=== PATIENT | female | born 1995 | race Caucasian/White ===

== ENCOUNTER 2020-03-16 00:27 | Outpatient (CLI) | payer BC, MEDICAID, SELFPAY ==
[2020-03-16 18:04] LABS: SARS-CoV-2 RNA PCR Negative
== END 2020-03-16 00:28 | disposition home or self-care (01) ==
LOC: ANHCOVIDDT 00:27
PROVIDERS: PCP Family Medicine; Visit Provider Internal Medicine Gastroenterology
DX: Z01.812 Encounter for preprocedural laboratory examination (principal); Z20.828 Contact with and (suspected) exposure to other viral communicable diseases
CPT/HCPCS: 87635; C9803; U0003

== ENCOUNTER 2020-03-19 02:31 | Day surgery (SDC) | payer BC, MEDICAID, SELFPAY ==
[2020-03-12 15:59] VITALS: BMI 23.0
--- NOTE | 2020-03-19 06:53 | WPDANESEPPF ---
Anes - Initial Pre Proc Eval Procedure: Operation Date: 03/19/20 08:00 Proposed Procedures p Colonoscopy - Henrique Salazar MD Date/Time: 03/19/20 06:53 Surgeon: Henrique Salazar MD Pre Op Diagnosis: Abdominal Pain Patient Data Age: 24 Gender: F Height: 1.6 m Weight: 59 kg Allergies Allergy/AdvReac Type Severity Reaction Status Date / Time Latex, Natural Rubber Allergy Mild Itching Verified 03/19/20 07:04 Home Medications Medication Instructions Recorded Confirmed Type hydroxychloroquine 200 mg tablet 200 mg PO DAILY 01/30/20 03/12/20 History peg 3350-electrolytes 236 240 ml PO Q10M #4000 ml 02/26/20 Rx gram-22.74 gram-6.74 gram-5.86 gram solution amlodipine 5 mg PO DAILY 03/12/20 03/12/20 History polyethylene glycol 3350 17 gram 238 g PO DAILY #1 ea 03/18/20 Rx oral powder packet Patient hx anesthesia problems: none Family hx anesthesia problems: none PMFSH Past Medical History Medical History (Updated 03/19/20 @ 08:33 by Henrique Salazar MD) Alternating constipation and diarrhea Lower abdominal pain Raynauds disease Family History Family History Unknown Diabetes mellitus Heart disease Social History Social History Smoking status: Never smoker Alcohol intake: never Substance use: never Substance use type: does not use Living arrangements: alone Spiritual care concerns: No Anes - Eval Final PreProcedure Day of Procedure 03/19/20 06:53 Patient weight: normal Heart: regular rate and rhythm Lungs: clear to auscultation and normal air movement Airway: Mallampati scale class II Neurological: alert and oriented Last oral intake: >/= 8 hours ASA classification: II Emergent: no Anesthetic plan: proceed Anesthesia type and monitoring: general GIVS Informed Consent: The patient's anesthetic plan and its attendant risks and benefits were discussed with the patient/family/POA. Questions were solicited and answers provided to the satisfaction of the patient/family/POA.
[2020-03-19 07:10] VITALS: BP 116/73; PULSE 66; RESP 16; TEMP 36.7; O2SAT 100; BMI 23.1
[2020-03-19] MEDS: LACTATED RINGERS 1,000 ML 150 ML IV CONT (07:18)
--- NOTE | 2020-03-19 08:33 | PM.HPGS ---
History of Present Illness History of Present Illness Consent: Risks, benefits, and alternatives have been discussed and questions answered. Patient agrees to proceed with procedure. Chief complaint: Abdominal Pain Narrative: Ye Molina is a 24 year old female with recent diagnosed of SLE, now with lower abdominal pain and alternating diarrhea with constipation. Review of Systems Constitutional: Constitutional: Denies headache(s) and Denies weakness Eyes: Eyes: Denies blurry vision ENT: Reports Normal hearing present, Denies headache(s) and Denies neck pain Cardiovascular: Cardiovascular: Denies chest pain and Denies dyspnea Respiratory: Respiratory: Denies dyspnea Gastrointestinal: Gastrointestinal: Reports no additional gastrointestinal complaints Genitourinary: Genitourinary: Denies dysuria Musculoskeletal: Musculoskeletal: Denies neck pain Integumentary/Breasts: Skin/Breast: Denies dry skin Neurologic: Reports Normal hearing present, Denies headache(s) and Denies weakness Psychiatric: Psychiatric: Denies anxiety Endocrine: Endocrine: Denies change in body appearance Hematologic/Lymphatic: Hematologic/Lymphatic: Denies easy bleeding Allergic/Immunologic: Allergic/Immunologic: Denies urticaria [facility] Past Medical History Medical History (Updated 03/19/20 @ 08:33 by Henrique Salazar MD) Alternating constipation and diarrhea Lower abdominal pain Raynauds disease Family History Family History Unknown Diabetes mellitus Heart disease Social History Social History Smoking status: Never smoker Alcohol intake: never Substance use: never Substance use type: does not use Living arrangements: alone Spiritual care concerns: No Meds Home Medications and Allergies Home Medications Medication Instructions Recorded Confirmed Type hydroxychloroquine 200 mg tablet 200 mg PO DAILY 01/30/20 03/12/20 History peg 3350-electrolytes 236 240 ml PO Q10M #4000 ml 02/26/20 Rx gram-22.74 gram-6.74 gram-5.86 gram solution amlodipine 5 mg PO DAILY 03/12/20 03/12/20 History polyethylene glycol 3350 17 gram 238 g PO DAILY #1 ea 03/18/20 Rx oral powder packet Allergies Allergy/AdvReac Type Severity Reaction Status Date / Time Latex, Natural Rubber Allergy Mild Itching Verified 03/19/20 07:04 Vital Signs Vital Signs - 24 hr 03/19/20 07:10 Temperature 98.0 F Pulse Rate 66 Respiratory Rate 16 Blood Pressure 116/73 Pulse Oximetry 100 Exam Const: General: comfortable and no acute distress HENMT: General nose exam: Normal nares present Eyes: General: appearance normal, both eyes and all related structures Neck: Neck: no JVD Resp: Auscultation: clear to auscultation bilaterally Cardio: Rate: regular rate Rhythm: regular rhythm GI: Inspection: non-distended GI Palp: Yes Soft to palpation Skin: General skin exam: normal color Neuro: General: gait normal Speech: normal speech Extrem: General: normal to inspection Psych: Mental Status: mental status grossly normal Assessment and Plan Assessment and plan (1) Lower abdominal pain: Code(s): R10.30 - Lower abdominal pain, unspecified Status: Acute Assessment and Plan: will proceed with colonoscopy (2) Alternating constipation and diarrhea: Code(s): R19.8 - Other specified symptoms and signs involving the digestive system and abdomen Status: Acute (3) Lupus: Code(s): M32.9 - Systemic lupus erythematosus, unspecified Status: Acute
[2020-03-19 08:35] VITALS: BP 89/53; PULSE 83; RESP 27; O2SAT 100
[2020-03-19 08:45] VITALS: BP 90/48; PULSE 66; RESP 19; O2SAT 100
[2020-03-19 08:55] VITALS: BP 97/56; PULSE 68; RESP 19; O2SAT 100
== END 2020-03-19 09:06 | disposition home or self-care (01) ==
PROVIDERS: PCP Family Medicine; Visit Provider Internal Medicine Gastroenterology
PROC: 0DJD8ZZ Inspection of Lower Intestinal Tract, Via Natural or Artificial Opening Endoscopic (ICD-10-PCS; CPT 45378; principal; 2020-03-19 08:00)
DX: R10.30 Lower abdominal pain, unspecified (principal); K59.00 Constipation, unspecified; R19.7 Diarrhea, unspecified; M32.9 Systemic lupus erythematosus, unspecified; I73.00 Raynaud's syndrome without gangrene
CPT/HCPCS: 45380; 88305; J2704; J7120

== ENCOUNTER 2021-11-20 14:06 | Outpatient (CLI) | payer BC, MEDICAID, SELFPAY ==
[2021-11-20 14:56] LABS: Influenza A QL RT-PCR Negative (Negative); Influenza B QL RT-PCR Negative (Negative); SARS-CoV-2 RNA PCR Negative (Negative)
== END 2021-11-20 14:07 | disposition home or self-care (01) ==
LOC: CHSLAB 14:08
PROVIDERS: PCP Family Medicine; Visit Provider Family Medicine
DX: Z20.822 Contact with and (suspected) exposure to COVID-19 (principal)
CPT/HCPCS: 87502; C9803; U0003; U0005

== ENCOUNTER 2022-02-21 20:17 | Emergency (ER) | payer BC, MEDICAID, SELFPAY ==
[2022-02-21 20:38] VITALS: BP 119/83; PULSE 79; RESP 17; TEMP 36.9; O2SAT 100
--- NOTE | 2022-02-21 20:47 | ED.ABDPAIN ---
HPI - Abdominal Pain General Chief Complaint: Abdominal Pain Stated Complaint: R side pain Source: patient Mode of arrival: ambulatory History of Present Illness HPI narrative: 26-year-old female with a history of lupus, Raynaud's phenomenon and diarrhea alternating with constipation presents to the ER with a 1 day history of -- right upper quadrant abdominal pain which is continuous. No fever. No nausea / vomiting. No radiation of the pain. MD elicited complaint: abdominal pain Onset (ago): day(s) ( Started yesterday) Pain Consistency: intermittent Location: RUQ Severity: mild Quality: aching Radiation: none Migration to: no migration Exacerbating factors: nothing Relieving factors: nothing Associated symptoms: denies other symptoms Related Data Patient : No Home Medications Medication Instructions Recorded Confirmed folic acid 1 mg tablet 5 mg PO DAILY 12/31/21 02/21/22 methotrexate sodium 15 mg tablet 15 mg PO WEEKLY 12/31/21 02/21/22 amlodipine 5 mg tablet 5 mg PO DAILY 02/21/22 02/21/22 Allergies Allergy/AdvReac Type Severity Reaction Status Date / Time nifedipine Allergy Intermediate Flushing Verified 02/21/22 20:34 Latex, Natural Rubber Allergy Mild Itching Verified 02/21/22 20:34 Review of Systems Review of Systems: All systems reviewed & are unremarkable except as noted in HPI and below Constitutional: Constitutional: Reports as per HPI and Reports no additional constitutional complaints Eyes: Eyes: Reports as per HPI and Reports no additional eye complaints ENT: Reports system reviewed and no additional complaints, except as documented and Reports as per HPI Cardiovascular: Cardiovascular: Reports as per HPI and Reports no additional cardiovascular complaints Respiratory: Respiratory: Reports as per HPI and Reports no additional respiratory complaints Gastrointestinal: Gastrointestinal: Reports as per HPI, Reports no additional gastrointestinal complaints and Reports abdominal pain Genitourinary: Genitourinary: Reports no additional female genitourinary complaints and Reports as per HPI Musculoskeletal: Musculoskeletal: Reports no additional musculoskeletal complaints and Reports as per HPI Integumentary/Breasts: Skin/Breast: Reports system reviewed and no additional complaints, except as docu and Reports as per HPI Neurologic: Reports system reviewed and no additional complaints, except as documented and Reports as per HPI Psychiatric: Psychiatric: Reports no additional psychiatric complaints and Reports as per HPI Endocrine: Endocrine: Reports no additional endocrine complaints and Reports as per HPI Hematologic/Lymphatic: Hematologic/Lymphatic: Reports no additional hematologic/lymphatic complaints and Reports as per HPI Allergic/Immunologic: Allergic/Immunologic: Reports no additional allergic/immunologic complaints and Reports as per HPI PMFSH Past Medical History Medical History Alternating constipation and diarrhea History of 1 History of vaginal delivery Lower abdominal pain Lupus Raynauds disease Surgical History Surgical History History of removal of cyst Right hand Family History Family History Grandparent Diabetes mellitus Heart disease Social History Social History Smoking status: Never smoker Alcohol intake: never Substance use: never Substance use type: does not use Spiritual care concerns: No Exam Const: General: no acute distress Orientation/consciousness: patient oriented x3 Limitations: no limitations HENMT: Ears: external ears normal Face/Nose/Sinus: Normal external nose present Mouth: Yes Normal oral and palatal mucosa present Throat: posterior oropharynx normal Eyes: Conjunctivae: conjunctivae n
[2022-02-21 21:30] LABS: Appearance Urine Clear (Clear); Bilirubin Urine Negative (Negative); Blood Urine Negative (Negative); Glucose Urine UA Negative (Negative); Ketones Urine Negative (Negative); Leukocyte Esterase Ur Negative (Negative); Nitrate Urine Negative (Negative); Protein Urine Negative (Negative); Urobilinogen Urine 0.2 mg/dL (0.2-1.0)
[2022-02-21 21:31] LABS: Basophils Absolute Auto 0.02 K/mm3 (0.00-0.10); Basophils Percent Auto 0.6 % (0.0-1.0); Eosinophils Absolute Auto 0.14 K/mm3 (0.02-0.50); Eosinophils Percent Auto 4.5 % (1.0-6.0); Hematocrit 36.7 % (35.0-49.0); Immature Granulocyte Absolute 0.01 K/mm3 (0.00-0.00); Immature Granulocyte Percent A 0.3 % (0.0-0.0); Immature Platelet Fraction Pct 2.7 % (1.0-7.0); Lymphocytes Absolute Auto 0.81 K/mm3 (1.10-4.50); Lymphocytes Percent Auto 26.3 % (18.0-42.0); Mean Corpuscular HGB Conc 32.7 g/dL (32.0-36.0); Mean Corpuscular Hemoglobin 28.6 pg (27.0-31.0); Mean Corpuscular Volume 87.4 fL (78.0-102.0); Mean Platelet Volume 10.7 fl (9.2-11.8); Monocytes Absolute Auto 0.44 K/mm3 (0.10-0.90); Monocytes Percent Auto 14.3 % (2.0-11.0); Neutrophils Absolute Auto 1.7 K/mm3 (1.7-7.2); Platelet Count Result 114 K/mm3 (150-420); Red Cell Distribution Width 13.6 % (11.6-14.4); White Blood Count 3.1 K/mm3 (4.8-10.8)
[2022-02-21 21:42] LABS: Add Urine Microscopic? NO; Color Urine Light Yellow (Yellow); Pregnancy On Board Control Positive; Urine Pregnancy Test Negative
[2022-02-21 21:46] LABS: Prothrombin Time 11.4 Seconds (9.50-12.10)
[2022-02-21 21:51] LABS: Lactic Acid Reflex 0.5 mmol/L (0.4-2.0)
[2022-02-21 21:58] LABS: Alanine Aminotransferase 20 U/L (14-59); Alkaline Phosphatase 75 U/L (46-116); Anion Gap 8 mmol/L (8-16); Aspartate Amino Transferase 24 U/L (15-37); Bilirubin,Total 0.3 mg/dL (0.00-1.00); Blood Urea Nitrogen 9 mg/dL (7-18); Calcium 8.6 mg/dL (8.5-10.1); Carbon Dioxide 26 mmol/L (21-32); Chloride 105 mmol/L (98-108); Estimated CRCL calculation 73 ml/min; Estimated Glomerular Filt Rate > 60; Glucose 81 mg/dL (70-99); Lipase 152 U/L (73-393); Osmolality Calculated 285 mOsm/kg (285-295); Potassium 3.6 mmol/L (3.5-5.1); Sodium 139 mmol/L (136-145); Total Protein 8.5 g/dL (6.4-8.2)
[2022-02-21 22:36] VITALS: BP 114/76; PULSE 75; RESP 18; TEMP 36.4; O2SAT 98
== END 2022-02-21 22:39 | disposition home or self-care (01) ==
PROVIDERS: Emergency Provider Internal Medicine Critical Care Medicine; PCP Family Medicine
DX: R10.9 Unspecified abdominal pain (principal)
CPT/HCPCS: 36415; 80053; 81003; 81025; 83605; 83690; 85025; 85055; 85610; 99283

== ENCOUNTER 2022-05-10 17:15 | Emergency (ER) | payer MEDICAID, SELFPAY ==
[2022-05-10 17:19] VITALS: BP 112/76; PULSE 87; RESP 16; TEMP 36.6; O2SAT 99
--- NOTE | 2022-05-10 17:45 | ED.GENADULT ---
HPI - General Adult General Chief complaint: Vaginal Bleeding Stated complaint: period for 2+weeks, heavy bleeding Time Seen by Provider: 05/10/22 17:44 History of Present Illness HPI narrative: 26-year-old female patient with known history of Raynaud's and lupus erythematosus is here with complaints of vaginal bleeding for almost 3 weeks. Patient states that she had her Implanon removed in February and in on April 20 she has had her regular period which lasted approximately a week. After 3 days of that she started having bleeding again and has continued to bleed and passed clots since then. She does complain about mild pelvic cramping. She denies any lightheadedness or passing out episodes. She denies any blood in the stools or urine. Patient is 1 para 1 and is not currently sexually active. She is not on any other control at this time. Patient is under care of a underwriting clerk at [employer] and also sees a supervisor hand workers locally for history of pancytopenia. She denies ever having had the need to get a blood transfusion. Related Data Home Medications Medication Instructions Recorded Confirmed folic acid 1 mg tablet 5 mg PO DAILY 12/31/21 05/10/22 methotrexate sodium 15 mg tablet 15 mg PO WEEKLY 12/31/21 05/10/22 amlodipine 5 mg tablet 5 mg PO DAILY 02/21/22 05/10/22 Allergies Allergy/AdvReac Type Severity Reaction Status Date / Time nifedipine Allergy Intermediate Flushing Verified 03/04/22 13:53 Latex, Natural Rubber Allergy Mild Itching Verified 03/04/22 13:53 Review of Systems Review of Systems: All systems reviewed & are unremarkable except as noted in HPI and below Constitutional: Constitutional: Denies fatigue, Denies fever(s) and Denies weakness Eyes: Eyes: Reports as per HPI ENT: Reports system reviewed and no additional complaints, except as documented Cardiovascular: Cardiovascular: Reports as per HPI and Reports no additional cardiovascular complaints Respiratory: Respiratory: Reports as per HPI and Reports no additional respiratory complaints Gastrointestinal: Gastrointestinal: Reports no additional gastrointestinal complaints Genitourinary: Genitourinary: Reports no additional female genitourinary complaints, Reports abnormal vaginal bleeding, Denies hematuria, Denies nocturia, Denies genital lesions, Denies dysuria, Reports pelvic pain, Denies flank pain, Denies urinary incontinence and Denies vaginal discharge Musculoskeletal: Musculoskeletal: Reports no additional musculoskeletal complaints Integumentary/Breasts: Skin/Breast: Reports system reviewed and no additional complaints, except as docu Neurologic: Reports system reviewed and no additional complaints, except as documented Endocrine: Endocrine: Reports no additional endocrine complaints Hematologic/Lymphatic: Hematologic/Lymphatic: Reports no additional hematologic/lymphatic complaints PMFSH Past Medical History Medical History Alternating constipation and diarrhea History of 1 History of vaginal delivery Lower abdominal pain Lupus Pancytopenia Raynauds disease Surgical History Surgical History History of removal of cyst Right hand Family History Family History Grandparent Diabetes mellitus Heart disease Social History Social History Smoking status: Never smoker Alcohol intake: never Substance use: never Substance use type: does not use Spiritual care concerns: No Exam Narrative: Alert female patient who appears in no acute distress. Vital signs are stable. Patient has a pulse rate of 87 blood pressure is 112/76 HEENT is acutely normal. no scleral pallor is noted. Oral mucous membranes are pink and moist. Neck is supple Chest wall is nontender. Lungs are clear to ausculta
[2022-05-10 18:29] LABS: Hematocrit 32.3 % (35.0-49.0); Hemoglobin 10.4 g/dL (12.0-15.0); Mean Corpuscular HGB Conc 32.2 g/dL (32.0-36.0); Mean Corpuscular Hemoglobin 28.4 pg (27.0-31.0); Mean Corpuscular Volume 88.3 fL (78.0-102.0); Mean Platelet Volume 10.8 fl (9.2-11.8); Platelet Count Result 136 K/mm3 (150-420); Red Blood Count 3.66 M/mm3 (4.20-5.40); Red Cell Distribution Width 14.2 % (11.6-14.4); White Blood Count 2.8 K/mm3 (4.8-10.8)
[2022-05-10 18:44] LABS: Alanine Aminotransferase 19 U/L (14-59); Albumin Level 3.5 g/dL (3.4-5.0); Alkaline Phosphatase 68 U/L (46-116); Anion Gap 5 mmol/L (8-16); Aspartate Amino Transferase 17 U/L (15-37); Bilirubin,Total 0.3 mg/dL (0.00-1.00); Blood Urea Nitrogen 8 mg/dL (7-18); Calcium 8.4 mg/dL (8.5-10.1); Carbon Dioxide 31 mmol/L (21-32); Chloride 104 mmol/L (98-108); Estimated CRCL calculation 74 ml/min; Estimated Glomerular Filt Rate > 60; Glucose 81 mg/dL (70-99); Osmolality Calculated 287 mOsm/kg (285-295); Potassium 3.8 mmol/L (3.5-5.1); Sodium 140 mmol/L (136-145); Total Protein 7.9 g/dL (6.4-8.2)
--- NOTE | 2022-05-10 19:05 | PC.NURSE ---
Care resumed, pt restin on bed, no c/o at this time, awaiting lab results and will d/c home if results normal. POC discussed c pt per ERP Dr Wong.
[2022-05-10 19:09] LABS: Band Neutrophils Percent 0 % (0-6); Neutrophils Absolute Manual 1.23 K/mm3 (1.7-7.2); Neutrophils Percent Manual 44 % (46-73); Total Cells Counted 100
[2022-05-10 19:10] LABS: Basophils Absolute Manual 0.02 K/mm3 (0-0.1); Basophils Percent Manual 1 % (0-1); Eosinophils Absolute Manual 0.16 K/mm3 (0.02-0.5); Eosinophils Percent Manual 6 % (1-6); Lymphocytes Percent Manual 43 % (18-44); Monocytes Absolute Manual 0.16 K/mm3 (0.1-0.90); Monocytes Percent Manual 6 % (3-9); Platelet Estimate Adequate (Adequate); Schistocytes None Seen (NORMAL)
[2022-05-10 19:18] VITALS: BP 102/65; PULSE 77; RESP 18; TEMP 36.6; O2SAT 98
--- NOTE | 2022-05-10 19:22 | ED.GENADULT ---
HPI - General Adult General Chief complaint: Vaginal Bleeding Stated complaint: period for 2+weeks, heavy bleeding Time Seen by Provider: 05/10/22 17:44 History of Present Illness HPI narrative: Care resumed from Dr. Lee at 1900. Please see her note for HPI and PE. Related Data Home Medications Medication Instructions Recorded Confirmed folic acid 1 mg tablet 5 mg PO DAILY 12/31/21 05/10/22 methotrexate sodium 15 mg tablet 15 mg PO WEEKLY 12/31/21 05/10/22 amlodipine 5 mg tablet 5 mg PO DAILY 02/21/22 05/10/22 Allergies Allergy/AdvReac Type Severity Reaction Status Date / Time nifedipine Allergy Intermediate Flushing Verified 03/04/22 13:53 Latex, Natural Rubber Allergy Mild Itching Verified 03/04/22 13:53 Review of Systems Review of Systems: All systems reviewed & are unremarkable except as noted in HPI and below PMFSH Past Medical History Medical History Alternating constipation and diarrhea History of 1 History of vaginal delivery Lower abdominal pain Lupus Pancytopenia Raynauds disease Surgical History Surgical History History of removal of cyst Right hand Family History Family History Grandparent Diabetes mellitus Heart disease Social History Social History Smoking status: Never smoker Alcohol intake: never Substance use: never Substance use type: does not use Spiritual care concerns: No Exam Const: General: healthy appearing and no acute distress Nutritional Appearance: well nourished HENMT: Head: normal to inspection Eyes: Conjunctivae: conjunctivae normal Resp: Effort & Inspection: normal respiratory effort Cardio: Rate: regular rate Skin: General skin exam: normal color Neuro: General: patient oriented x3 and moves all extremities Extrem: General: normal to inspection Psych: Mental Status: mental status grossly normal Course Course Emergency Course: CBC showed pancytopenia, not much different from previous. She denied CP, dyspnea and lightheadedness. She was discharged to f/u with her specialists and given return precautions. Vital Signs Vital signs: Vital Signs Temperature 97.9 F 05/10/22 17:19 Pulse Rate 87 05/10/22 17:19 Respiratory Rate 16 05/10/22 17:19 Blood Pressure 112/76 05/10/22 17:19 Pulse Oximetry 99 05/10/22 17:19 Oxygen Delivery Room Air 05/10/22 17:19 Temperature 97.9 F 05/10/22 19:18 Pulse Rate 77 05/10/22 19:18 Respiratory Rate 18 05/10/22 19:18 Blood Pressure 102/65 05/10/22 19:18 Pulse Oximetry 98 05/10/22 19:18 Oxygen Delivery Room Air 05/10/22 19:18 Medical Decision Making Vital Signs Vital Signs: Vital Signs Temperature 97.9 F 05/10/22 17:19 Pulse Rate 87 05/10/22 17:19 Respiratory Rate 16 05/10/22 17:19 Blood Pressure 112/76 05/10/22 17:19 Pulse Oximetry 99 05/10/22 17:19 Oxygen Delivery Room Air 05/10/22 17:19 Temperature 97.9 F 05/10/22 19:18 Pulse Rate 77 05/10/22 19:18 Respiratory Rate 18 05/10/22 19:18 Blood Pressure 102/65 05/10/22 19:18 Pulse Oximetry 98 05/10/22 19:18 Oxygen Delivery Room Air 05/10/22 19:18 Lab Data 05/10/22 18:21 05/10/22 18:21 Labs: Lab Results 05/10/22 05/10/22 Range/Units 18:21 18:21 WBC 2.8 L (4.8-10.8) K/mm3 RBC 3.66 L (4.20-5.40) M/mm3 Hgb 10.4 L (12.0-15.0) g/dL Hct 32.3 L (35.0-49.0) % MCV 88.3 (78.0-102.0) fL MCH 28.4 (27.0-31.0) pg MCHC 32.2 (32.0-36.0) g/dL RDW 14.2 (11.6-14.4) % Plt Count 136 L (150-420) K/mm3 MPV 10.8 (9.2-11.8) fl Immature Gran % (Auto) Not Reportable Neut % (Auto) Not Reportable Lymph % (Auto) Not Reportable [place] % (Auto) Not Reportable Eos % (Auto) Not Re
== END 2022-05-10 19:18 | disposition home or self-care (01) ==
PROVIDERS: Emergency Medicine; Emergency Provider Family Medicine; PCP Family Medicine
DX: N92.0 Excessive and frequent menstruation with regular cycle (principal); D61.818 Other pancytopenia; M32.9 Systemic lupus erythematosus, unspecified; I73.00 Raynaud's syndrome without gangrene
CPT/HCPCS: 36415; 80053; 85025; 99283

== ENCOUNTER 2022-07-07 16:52 | Outpatient (CLI) | payer BC, SELFPAY | END 2022-07-07 16:53 | disposition home or self-care (01) | LOC: ANHLAB 16:55 | PROVIDERS: PCP Family Medicine; Visit Provider Family Medicine | DX: R30.0 Dysuria (principal) | CPT/HCPCS: 87086; 87491; 87591; 87661 ==

== ENCOUNTER 2022-11-07 22:45 | Emergency (ER) | payer BC, SELFPAY ==
[2022-11-07 22:56] VITALS: BP 127/76; PULSE 85; RESP 20; TEMP 36.6; O2SAT 100
--- NOTE | 2022-11-07 23:02 | ED.FALL ---
HPI - Fall General Chief Complaint: Fall Stated Complaint: fell down stairs Source: patient Mode of arrival: ambulatory Limitations: no limitations History of Present Illness HPI Narrative: this is a 27-year-old female that is 10 weeks that had a fall on 1 1 one-step and fell onto her abdomen and currently having some discomfort she fell about 2hours ago with no bruising on her abdomen no flank pain no vaginal discharge or spotting no bleeding vaginally. Patient also has a bruise on the anterior surface of her right foot but does have good range of motion in her knee and her foot has a strong pedal pulse is. No other injuries no chest pain no shortness of breath. No head injury or loss of consciousness no blurry vision. complaint: fall Onset (ago): hour(s) Fall from: standing and down stairs (#) ( 1) Severity: mild Severity scale (1-10): 1 Related Data Home Medications Medication Instructions Recorded Confirmed vits no.130-ferrous fum 1 tablet PO DAILY 11/07/22 11/07/22 27 mg iron-folic acid 800 mcg tablet ( Vitamin) Allergies Allergy/AdvReac Type Severity Reaction Status Date / Time nifedipine Allergy Intermediate Flushing Verified 03/04/22 13:53 Latex, Natural Rubber Allergy Mild Itching Verified 03/04/22 13:53 Review of Systems Review of Systems: All systems reviewed & are unremarkable except as noted in HPI and below PMFSH Past Medical History Medical History Alternating constipation and diarrhea History of 1 History of vaginal delivery Lower abdominal pain Lupus Pancytopenia Raynauds disease Surgical History Surgical History History of removal of cyst Right hand Family History Family History Grandparent Diabetes mellitus Heart disease Social History Social History Smoking status: Never smoker Alcohol intake: never Substance use: never Substance use type: does not use Living arrangements: with family Spiritual care concerns: No Exam Const: General: healthy appearing, no acute distress and alert Nutritional Appearance: well nourished Limitations: no limitations HENMT: Head: normal to inspection Face and sinus: normal facial exam Mouth: Yes Normal oral and palatal mucosa present Eyes: Conjunctivae: conjunctivae normal Pupils: Equal, round and reactive pupils present Neck: Neck: normal visual inspection Chest: Chest palpation & inspection: normal inspection of the chest Resp: Effort & Inspection: normal respiratory effort Auscultation: clear to auscultation bilaterally Cardio: Rate: regular rate Rhythm: regular rhythm GI: Auscultation: normal bowel sounds Other: No bruises or injuries noted during palpation was soft and nontender : General: Yes bladder normal to palpation Skin: General skin exam: normal color Wounds: wounds noted Neuro: General: patient oriented x3 Cranial nerves: Yes Nystagmus not present Speech: normal speech Extrem: General: normal to inspection Psych: Mental Status: mental status grossly normal Affect: normal affect Course Course Emergency Course: during examination reassurance was given and advised patient to follow-up with rn cvicu or return to the emergency department if any changes, or if any vaginal bleeding. Critical Care Time Critical Care Time Critical Care Time: No Discharge Plan Discharge Clinical Impression: Lower abdominal pain Patient Disposition: Home, Self-Care Condition: Stable Instructions: Antibiotic Form, Foot Contusion (ED) Additional Instructions: follow-up with rn cvicu if symptoms persist or worsen or if any vaginal bleeding return to the nearest emergency department. Prescriptions: No Action Pren
--- NOTE | 2022-11-07 23:11 | PC.NURSE ---
Pt signed decline for HIV testing while in ER. She states she had done in her OB Dr office recently.
[2022-11-07 23:15] VITALS: BP 118/74; PULSE 74; RESP 18; O2SAT 99
== END 2022-11-07 23:18 | disposition home or self-care (01) ==
PROVIDERS: Emergency Provider Emergency Medicine; PCP Family Medicine
DX: O26.891 Other specified pregnancy related conditions, first trimester (principal); R10.30 Lower abdominal pain, unspecified; Z3A.10 10 weeks gestation of pregnancy; W10.9XXA Fall (on) (from) unspecified stairs and steps, initial encounter
CPT/HCPCS: 99281

== ENCOUNTER 2022-11-09 18:57 | Emergency (ER) | payer BC, SELFPAY ==
[2022-11-09 19:27] VITALS: BP 97/75; PULSE 81; RESP 16; TEMP 36.7; O2SAT 100
--- NOTE | 2022-11-09 23:40 | ED.GENADULT ---
HPI - General Adult General Chief complaint: Abdominal Pain Stated complaint: fall 2 days ago/abd pain/early Time Seen by Provider: 11/09/22 21:59 History of Present Illness HPI narrative: 27-year-old female presenting 11 weeks gestation. patient fell down several stairs 2 days ago. She then went to [facility] in ED to be evaluated but was told they did not have the proper ultrasounds to evaluate the fetus. This time the patient has had some abdominal pain her belly button. She has had no vaginal discharge or bleeding. No other complaints. she wants to make sure her baby is okay. Related Data Home Medications Medication Instructions Recorded Confirmed vits no.130-ferrous fum 1 tablet PO DAILY 11/07/22 11/07/22 27 mg iron-folic acid 800 mcg tablet ( Vitamin) Allergies Allergy/AdvReac Type Severity Reaction Status Date / Time nifedipine Allergy Intermediate Flushing Verified 03/04/22 13:53 Latex, Natural Rubber Allergy Mild Itching Verified 03/04/22 13:53 PMFSH Past Medical History Medical History Alternating constipation and diarrhea History of 1 History of vaginal delivery Lower abdominal pain Lupus Pancytopenia Raynauds disease Surgical History Surgical History History of removal of cyst Right hand Family History Family History Grandparent Diabetes mellitus Heart disease Social History Social History Smoking status: Never smoker Alcohol intake: never Substance use: never Substance use type: does not use Living arrangements: with family Spiritual care concerns: No Exam Narrative: APPEARANCE: No apparent distress. Head: atraumatic. EYES: EOMI, NOSE: Atraumatic NECK: Trachea midline RESPIRATORY: No increased rate of breathing CARDIOVASCULAR: RRR, ABDOMINAL: Nondistended, soft no guarding or rebound MUSCULOSKELETAl: No obvious deformities NEURO: Alert. Moving 4/4 extremities SKIN:: Warm, dry. Normal color PSYCHIATRIC: Normal affect Course Vital Signs Vital signs: Vital Signs Temperature 98.0 F 11/09/22 19:27 Pulse Rate 81 11/09/22 19:27 Respiratory Rate 16 11/09/22 19:27 Blood Pressure 97/75 L 11/09/22 19:27 Pulse Oximetry 100 11/09/22 19:27 Oxygen Delivery Room Air 11/09/22 19:27 Temperature 98.0 F 11/09/22 19:27 Pulse Rate 81 11/09/22 19:27 Respiratory Rate 16 11/09/22 19:27 Blood Pressure 97/75 L 11/09/22 19:27 Pulse Oximetry 100 11/09/22 19:27 Oxygen Delivery Room Air 11/09/22 19:27 Medical Decision Making MDM Narrative Medical decision making narrative: -Presentation: 27-year-old woman at 27 weeks gestation presenting after a fall. -DDX includes but is not limited to: Abdominal trauma, intrauterine demise, -Co-morbidities complicating care: -Social determinants of health: lives alone with her child, works in payroll -External Chart Review: review of [facility] ED note -Hx from independent Sources: none -Independent interpretation of studies: point of care OB ultrasound revealed a live intrauterine fetus with a normal heart rate. No free fluid in the abdomen. -Discussion of Management/Consultants: None -Dx tests considered but not ordered: none -Procedures: none -Interventions: none -Shared decision making / Disposition: results were explained to the patient. patient was instructed to follow-up with her OBGYN as needed and return if she develops severe abdominal pain or vaginal bleeding -RX Vital Signs Vital Signs: Vital Signs Temperature 98.0 F 11/09/22 19:27 Pulse Rate 81 11/09/22 19:27 Respiratory Rate 16 11/09/22 19:27 Blood Pressure 97/75 L 11/09/22 19:27 Pulse Oxi
== END 2022-11-10 00:20 | disposition home or self-care (01) ==
PROVIDERS: Emergency Provider Emergency Medicine; PCP Family Medicine
DX: O9A.212 Injury, poisoning and certain other consequences of external causes complicating pregnancy, second trimester (principal); S39.91XA Unspecified injury of abdomen, initial encounter; O99.412 Diseases of the circulatory system complicating pregnancy, second trimester; I73.00 Raynaud's syndrome without gangrene; Z3A.27 27 weeks gestation of pregnancy; W10.9XXA Fall (on) (from) unspecified stairs and steps, initial encounter
CPT/HCPCS: 99282

== ENCOUNTER 2023-04-15 21:33 | Emergency (ER) | payer BC, SELFPAY ==
[2023-04-15 21:43] VITALS: BP 118/77; PULSE 82; RESP 18; TEMP 37; O2SAT 98
[2023-04-15 21:52] LABS: Hematocrit 33.5 % (35.0-49.0); Hemoglobin 10.5 g/dL (12.0-15.0); Mean Corpuscular HGB Conc 31.3 g/dL (32.0-36.0); Mean Corpuscular Hemoglobin 26.9 pg (27.0-31.0); Mean Corpuscular Volume 85.7 fL (78.0-102.0); Mean Platelet Volume 8.9 fl (9.2-11.8); Platelet Count Result 113 K/mm3 (150-420); Red Blood Count 3.91 M/mm3 (4.20-5.40); Red Cell Distribution Width 14.8 % (11.6-14.4); White Blood Count 2.8 K/mm3 (4.8-10.8)
[2023-04-15 22:02] LABS: Band Neutrophils Percent 0 % (0-6); Basophils Absolute Manual 0.02 K/mm3 (0-0.1); Basophils Percent Manual 1 % (0-1); Eosinophils Percent Manual 0 % (1-6); Lymphocytes Absolute Manual 0.81 K/mm3 (1.1-4.5); Lymphocytes Percent Manual 29 % (18-44); Monocytes Absolute Manual 0.39 K/mm3 (0.1-0.90); Monocytes Percent Manual 14 % (3-9); Neutrophils Absolute Manual 1.56 K/mm3 (1.7-7.2); Neutrophils Percent Manual 56 % (46-73); Platelet Estimate Adequate (Adequate)
[2023-04-15 22:07] LABS: Alanine Aminotransferase 55 U/L (14-59); Albumin Level 3.5 g/dL (3.4-5.0); Alkaline Phosphatase 81 U/L (46-116); Anion Gap 5 mmol/L (8-16); Aspartate Amino Transferase 46 U/L (15-37); Bilirubin,Total 0.2 mg/dL (0.00-1.00); Blood Urea Nitrogen 14 mg/dL (7-18); Calcium 8.4 mg/dL (8.5-10.1); Carbon Dioxide 29 mmol/L (21-32); Chloride 102 mmol/L (98-108); Estimated CRCL calculation 69 ml/min; Estimated Glomerular Filt Rate > 60; Glucose 101 mg/dL (70-99); Osmolality Calculated 282 mOsm/kg (285-295); Potassium 3.2 mmol/L (3.5-5.1); Sodium 136 mmol/L (136-145); Total Protein 8.3 g/dL (6.4-8.2)
[2023-04-15 22:08] LABS: CRP < 0.5 mg/dL (0.0-0.9)
--- NOTE | 2023-04-15 22:14 | ED.GENADULT ---
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 Onset (ago): day(s) Related Data Home Medications Medication Instructions Recorded Confirmed vits no.[id number]-ferrous fum 1 tablet PO DAILY 11/07/22 11/07/22 27 mg iron-folic acid 800 mcg tablet ( Vitamin) Allergies Allergy/AdvReac Type Severity Reaction Status Date / Time nifedipine Allergy Intermediate Flushing Verified 03/04/22 13:53 Latex, Natural Rubber Allergy Mild Itching Verified 03/04/22 13:53 Review of Systems Review of Systems: All systems reviewed & are unremarkable except as noted in HPI and below PMFSH Past Medical History Medical History Alternating constipation and diarrhea History of 1 History of vaginal delivery Lower abdominal pain Lupus Pancytopenia Raynauds disease Surgical History Surgical History History of removal of cyst Right hand Family History Family History Grandparent Diabetes mellitus Heart disease Social History Social History Smoking status: Never smoker Alcohol intake: never Substance use: never Substance use type: does not use Living arrangements: with family Spiritual care concerns: No Exam Const: General: cooperative, healthy appearing, comfortable and no acute distress Eyes: General: appearance normal, both eyes and all related structures Neck: Neck: normal visual inspection, full ROM and no lymphadenopathy Chest: Chest palpation & inspection: normal inspection of the chest and normal palpation of entire chest wall Resp: Effort & Inspection: normal respiratory effort and able to speak in complete sentences Cardio: Jugular venous distension: no JVD Palpation: normal PMI Rate: regular rate Rhythm: regular rhythm GI: Inspection: normal to inspection Auscultation: normal bowel sounds Neuro: General: oriented to person, oriented to place and oriented to time Extrem: General: normal to inspection, full ROM and capillary refill normal Course Course Emergency Course: Patient had blood work performed she is mildly anemic but not to explain any reason for her to be fatigued, potassium is 3.2 and will replace with a dose of p.o. potassium and will discharge and advised patient follow-up with her primary. Vital Signs Vital signs: Vital Signs Temperature 37.0 C 04/15/23 21:43 Pulse Rate 82 04/15/23 21:43 Respiratory Rate 18 04/15/23 21:43 Blood Pressure 118/77 04/15/23 21:43 Pulse Oximetry 98 04/15/23 21:43 Oxygen Delivery Room Air 04/15/23 21:43 Temperature 37.0 C 04/15/23 21:43 Pulse Rate 82 04/15/23 21:43 Respiratory Rate 18 04/15/23 21:43 Blood Pressure 118/77 04/15/23 21:43 Pulse Oximetry 98 04/15/23 21:43 Oxygen Delivery Room Air 04/15/23 21:43 Medical Decision Making Vital Signs Vital Signs: Vital Signs Temperature 37.0 C 04/15/23 21:43 Pulse Rate 82 04/15/23 21:43 Respiratory Rate 18 04/15/23 21:43 Blood Pressure 118/77 04/15/23 21:43 Pulse Oximetry 98 04/15/23 21:43 Oxygen Delivery Room Air 04/15/23 21:43 Temperature 37.0 C 04/15/23 21:43 Pulse Rate 82 04/15/23 21:43 Respiratory Rate 18 04/15/23 21:43 Blood Pressure 118/77
[2023-04-15] MEDS: POTASSIUM BICARBONATE 25 MEQ TABEF 50 MEQ PO (22:24)
[2023-04-15 22:27] VITALS: BP 122/71; PULSE 74; RESP 18; O2SAT 98
== END 2023-04-15 22:33 | disposition home or self-care (01) ==
PROVIDERS: Emergency Provider Emergency Medicine; PCP Family Medicine
DX: M32.9 Systemic lupus erythematosus, unspecified (principal); R53.83 Other fatigue
CPT/HCPCS: 36415; 80053; 85025; 86140; 99283; A9270

== ENCOUNTER 2023-07-05 17:04 | Emergency (ER) | payer OTHER, SELFPAY ==
[2023-07-05 17:07] VITALS: BP 114/64; PULSE 70; RESP 20; TEMP 36.8; O2SAT 98
--- NOTE | 2023-07-05 17:36 | ED.EAR ---
HPI - Ear Problem General Chief complaint: Ear Stated complaint: ear pain History of Present Illness HPI Narrative: This is a 27-year-old female, with no significant past medical history, presents to the emergency department complaining of left ear pain. The patient states last night, she was cleaning her left ear using a Q-tip, when she slipped, causing the Q-tip to be pushed further into the ear. This was associated with momentary sharp pain, rated 5/10. She states she intermittent, though persistent ear pain through the evening. She denies weakness, numbness, fevers or loss of hearing. Related Data Home Medications Medication Instructions Recorded Confirmed folic acid 1 mg tablet 1 mg PO DAILY 06/14/23 07/05/23 methotrexate 2.5 mg/mL oral 2.5 mg PO WEEKLY 06/14/23 07/05/23 solution gabapentin 300 mg capsule 300 mg PO DAILY 07/05/23 07/05/23 Allergies Allergy/AdvReac Type Severity Reaction Status Date / Time nifedipine Allergy Intermediate Flushing Verified 07/05/23 17:11 Latex, Natural Rubber Allergy Mild Itching Verified 07/05/23 17:11 Review of Systems Review of Systems: CONSTITUTIONAL: Denies fever, chills, or sweats. ENT: Left otalgia, Denies hearing loss, rhinorrhea, congestion, sore throat CARDIOVASCULAR: Denies chest pain, palpitations, or edema. RESPIRATORY: Denies cough or dyspnea. SKIN: Denies rash or itching. NEUROLOGIC: Denies headache, numbness, dizziness, or weakness. PSYCHIATRIC: Denies anxiety or depression. [facility] Past Medical History Medical History Alternating constipation and diarrhea History of 1 History of vaginal delivery Lower abdominal pain Lupus Pancytopenia Raynauds disease Surgical History Surgical History History of removal of cyst Right hand Family History Family History Grandparent Diabetes mellitus Heart disease Social History Social History Smoking status: Never smoker Alcohol intake: never Substance use: never Substance use type: does not use Do You Feel Safe in your Home?: Yes Lack of Transportation: No Lack of Food: Never True Current Housing: I Have Housing Concerned About Future Housing: No Difficulty Paying Gas/Electric Bills: No Difficulty Paying for Meds: No Currently Unemployed: No Difficulty w/ Childcare or Family Care: No Living arrangements: with family Spiritual care concerns: No Exam Narrative: GENERAL: Well-developed, well-nourished, and in no acute distress. HEAD: Normocephalic, atraumatic. EYES: PERRLA and EOMI. ENT: Left external auditory canal appears normal. There is impacted cerumen obscuring the left TM. Right TM pearly crenshaw nonbulging NECK: Supple. No adenopathy or masses. CHEST: Clear to auscultation. No respiratory distress. No wheezes rales or rhonchi HEART: Regular rate and rhythm. No murmur heard. Normal peripheral pulses. NEURO: Alert and oriented x3. No focal deficit. Moving all 4 limbs spontaneously PSYCH: Normal mood and affect. Course Course Emergency Course: 17:39 - Attempts to disimpact the left ear were not successful due to pain. In the absence of hearing changes, I have decreased suspicion for TM rupture. Will discharge with Debrox, recommendations for warm water rinses and recommendation for primary care follow-up. I advised the patient to avoid placement of foreign objects in the ears. Discussed return and emergency precautions including signs/symptoms of otitis media and vertigo. The patient voiced understanding and is comfortable with the plan. All questions answered to her satisfaction. Vital Signs Vital signs: Vital Signs Temperature 98.2 F 07/05/23 17:07 Pulse Rate 70 07/05/23 17:07 Respiratory Rate 20 07/05/23 17:07 Bl
== END 2023-07-05 17:40 | disposition home or self-care (01) ==
LOC: CHSED 17:41
PROVIDERS: Emergency Provider Preventive Medicine Aerospace Medicine; PCP Family Medicine
DX: H61.22 Impacted cerumen, left ear (principal); Z79.899 Other long term (current) drug therapy
CPT/HCPCS: 99283

== ENCOUNTER 2023-07-06 03:59 | Emergency (ER) | payer OTHER, SELFPAY ==
[2023-07-06 04:03] VITALS: BP 115/85; PULSE 67; RESP 18; TEMP 36.5; O2SAT 96
--- NOTE | 2023-07-06 04:11 | ED.GENADULT ---
HPI - General Adult General Chief complaint: Ear Stated complaint: ear problems History of Present Illness HPI narrative: Ye is a 27F with a PMH of lupus, and cary presented to the ED with pain in her left year. It started 2 nights ago when she was cleaning her ears out with a Q-tip. She twisted it and had immediate pain. She came in yesterday evening and it was attempted to be flushed without much success. She was discharged yesterday evening with debrox and was instructed to f/u with her PCP. No fevers, chills, hearing changes or dental pain reported. Related Data Home Medications Medication Instructions Recorded Confirmed folic acid 1 mg tablet 1 mg PO DAILY 06/14/23 07/06/23 methotrexate 2.5 mg/mL oral 2.5 mg PO WEEKLY 06/14/23 07/06/23 solution gabapentin 300 mg capsule 300 mg PO DAILY 07/05/23 07/06/23 (Neurontin) Allergies Allergy/AdvReac Type Severity Reaction Status Date / Time nifedipine Allergy Intermediate Flushing Verified 07/06/23 04:12 Latex, Natural Rubber Allergy Mild Itching Verified 07/06/23 04:12 Review of Systems Review of Systems: All systems reviewed & are unremarkable except as noted in HPI and below PMFSH Past Medical History Medical History Alternating constipation and diarrhea History of 1 History of vaginal delivery Lower abdominal pain Lupus Pancytopenia Raynauds disease Surgical History Surgical History History of removal of cyst Right hand Family History Family History Grandparent Diabetes mellitus Heart disease Social History Social History Smoking status: Never smoker Alcohol intake: never Substance use: never Substance use type: does not use Do You Feel Safe in your Home?: Yes Lack of Transportation: No Lack of Food: Never True Current Housing: I Have Housing Concerned About Future Housing: No Difficulty Paying Gas/Electric Bills: No Difficulty Paying for Meds: No Currently Unemployed: No Difficulty w/ Childcare or Family Care: No Living arrangements: with family Spiritual care concerns: No Exam Const: General: cooperative, healthy appearing, comfortable, no acute distress, well developed, alert, awake and Physically active Orientation/consciousness: oriented to person, oriented to place and oriented to time HENMT: Head: normal to inspection, normocephalic and atraumatic Ears: hearing grossly normal bilaterally and external ears normal Face/Nose/Sinus: Normal external nose present Other: left external auditory canal appears normal, but is very small. Cerumen impaction present on the left. Eyes: General: appearance normal, both eyes and all related structures Periorbital: periorbital findings normal Sclera: sclerae normal Pupils: Equal, round and reactive pupils present Neck: Neck: normal visual inspection Chest: Chest palpation & inspection: normal inspection of the chest Resp: Auscultation: clear to auscultation bilaterally Cardio: Jugular venous distension: no JVD Skin: General skin exam: normal color and no rashes or lesions noted Neuro: General: oriented to person, oriented to place and oriented to time Cranial nerves: Yes Equal, round and reactive pupils present Extrem: General: normal to inspection Course Course Emergency Course: Attempted ear lavage which again had to be stopped d/t discomfort. Next I attempted to grab some cerumen with alligator forceps but was unsuccessful as ear canal is very narrow. I discussed with the patient that she will need to use the debrox, which she was unable to car pick up driver as the pharmacy was closed, to help get the wax out. As there is no hearing change TM rupture is unlikely. Her questions were again answered and she was discharged piyush
--- NOTE | 2023-07-06 04:21 | PC.NURSE ---
Dr. Wong at patient bedside for irrigation of patient left ear.
== END 2023-07-06 04:30 | disposition home or self-care (01) ==
PROVIDERS: Emergency Provider Family Medicine; PCP Family Medicine
DX: H61.22 Impacted cerumen, left ear (principal)
CPT/HCPCS: 99282